=== PATIENT | male | born 1985 | race African-American/Black ===

== ENCOUNTER 2017-05-22 12:11 | Emergency (ER) | payer MEDICAID, OTHER ==
[~2017-05-22] VITALS: Ht 165.1 cm; Wt 68.0 kg
[2017-05-22 12:13] VITALS: BP 161/98; PULSE 63; RESP 13; TEMP 99.4; O2SAT 97
--- NOTE | 2017-05-22 12:25 | PD ---
HPI Chief Complaint: Oral / Dental Pain or Problem Time Seen by Provider: 12:18 Travel History International Travel<30 days: No Contact w/Intl Traveler<30days: No Traveled to known affect area: No History of Present Illness HPI 31-year-old Afro-[place]i male with left lower jaw dental pain for the past week. Patient states pain is getting worse. He does have a dentist but is unable to get in until next week. Patient denies fever or difficulty swallowing. Pain is currently 9 of 10. He does have some sensitivity to hot and cold as well. He denies drainage from the area. He has no known drug allergies. [facility] Social History Alcohol Use: No Tobacco Use: Yes Substance Use: No Allergies-Medications (Allergen,Severity, Reaction): Coded Allergies: No Known Allergies (Unverified , 06/01/15) Reported Meds & Prescriptions Reported Meds & Active Scripts Active No Active Prescriptions or Reported Medications Review of Systems Except as stated in HPI: all other systems reviewed are Neg General / Constitutional: No: Fever Eyes: No: Visual changes HENT: Positive: Dental Difficulties, No: Headaches, Vertigo, Lightheadedness, Sore Throat, Rhinitis, Rhinorrhea, Congestion, Nosebleed, Neck Stiffness, Neck Pain, Gingival Bleeding, Ear Discharge, Earache Cardiovascular: No: Chest Pain or Discomfort Respiratory: No: Shortness of Breath Gastrointestinal: No: Abdominal Pain Genitourinary: No: Dysuria Musculoskeletal: No: Pain Skin: No Rash Neurologic: No: Weakness Psychiatric: No: Depression Endocrine: No: Polydipsia Hematologic/Lymphatic: No: Easy Bruising Physical Exam Narrative GENERAL: Patient appears in mild to moderate distress. SKIN: Warm and dry. Normal color. Normal turgor. No erythema. HEAD: Atraumatic. Normocephalic. Mild swelling of the left lower jaw. EYES: Pupils equal and round. No scleral icterus. No injection or drainage. ENT: No nasal bleeding or discharge. Mucous membranes pink and moist. Patient has obvious caries to the left lower first molar with localized swelling of the gingiva, without drainable abscesses appreciated. Pharynx is clear. Airway is patent. TMs are clear bilaterally. NECK: Trachea midline. Supple and nontender without lymphadenopathy. CARDIOVASCULAR: Regular rate and rhythm. RESPIRATORY: No accessory muscle use. Clear to auscultation. Breath sounds equal bilaterally. MUSCULOSKELETAL: Extremities without clubbing, cyanosis, or edema. No obvious deformities. NEUROLOGICAL: Awake and alert. No obvious cranial nerve deficits. Motor grossly within normal limits. Five out of 5 muscle strength in the arms and legs. Normal speech. PSYCHIATRIC: Appropriate mood and affect; insight and judgment normal. Data Data Last Documented VS Vital Signs Date Time Temp Pulse Resp B/P (MAP) Pulse Ox O2 Delivery O2 Flow Rate FiO2 05/22/17 12:13 99.4 63 13 161/98 (119) 97 MDM Medical Decision Making Medical Screen Exam Complete: Yes Emergency Medical Condition: Yes Differential Diagnosis Dental caries. Dental pain. Dental abscess. Narrative Course Patient is given a first dose of Pen-Vee K 1000 mg by mouth now. Patient is given first dose of ibuprofen 800 mg by mouth now. Patient is continued on Pen-Vee K 500 mg 4 times a day 7 days. Patient is given ibuprofen 800 mg 3 times daily with food #30. Patient is given Magic mouthwash as directed every 2 hours when necessary for pain, 120 mL's with 1 refill. Patient is to follow with a dentist as soon as possible. Diagnosis Primary Impression: Dental abscess Referrals: Dentist Patient Instructions: Dental Abscess (ED), General Instructions Departure Forms: Work Release Enter return to work date: May 23, 2017 Additional Instructions: Patient is given a first dose of Pen-Vee K 1000 mg by mouth now. Patient is given first dose of ibuprofen 800 mg by mouth now. Patient is continued on Pen-Vee K 500 mg 4 times a day 7 days. Patient is given ibuprofen 800 mg 3 times daily with food #30. Patient is given Magic mouthwash as directed every 2 hours when necessary for pain, 120 mL's with 1 refill. Patient is to follow with a dentist as soon as possible. Med/Other Pt SpecificInfo: Prescription(s) given Scripts No Active Prescriptions or Reported Meds Disposition: 01 DISCHARGE HOME Condition: Stable Jordon Blackwell May 22, 2017 12:25
[2017-05-22] MEDS ORDERED: IBUP1TAB7 PO (12:28)
[2017-05-22] MEDS ORDERED: MAGICADU2 SWISH-SPIT (12:28)
[2017-05-22] MEDS ORDERED: PENI500T PO (12:28)
[2017-05-22] MEDS ORDERED: PENICILLIN V POTASSIUM 500 MG TAB PO ONE (12:30)
[2017-05-22] MEDS ORDERED: IBUPROFEN 800 MG TAB PO ONE (12:30)
== END 2017-05-22 12:54 | disposition home or self-care (01) ==
LOC: NEPK 12:11
DX: K04.7 Periapical abscess without sinus (principal)
CPT/HCPCS: 99284

== ENCOUNTER 2017-06-11 20:24 | Emergency (ER) | payer OTHER ==
[~2017-06-11] VITALS: Ht 165.1 cm; Wt 70.0 kg
[~2017-06-11 20:24] MED LIST: IBUP1TAB7 PO; MAGICADU2 SWISH-SPIT; PENI500T PO
[2017-06-11 20:39] VITALS: BP 139/87; PULSE 80; RESP 16; TEMP 98.2; O2SAT 98
[2017-06-11] MEDS ORDERED: ONDANSETRON HCL 4 MG/2 ML VIAL IV PUSH ONE (20:45)
[2017-06-11] MEDS ORDERED: MORPHINE SULFATE 4 MG/ML INJ IV PUSH ONE (20:45)
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
--- NOTE | 2017-06-11 22:04 | RADRPT ---
EXAM DATE/TIME: 06/11/2017 20:49 [facility] COMPARISON: TIBIA/FIBULA LEFT (AP/LAT), June 01, 2015, 16:48. INDICATIONS : Pain post fall. MEDICAL HISTORY : None. SURGICAL HISTORY : None. ENCOUNTER: Initial ACUITY: 1 day PAIN SCORE: 7/10 LOCATION: Left Lower leg. FINDINGS: Two view examination of the left tibia demonstrates no evidence of fracture or dislocation. Bony min eralization is normal. The soft tissue structures are intact. CONCLUSION: Unremarkable examination of the left tibia. Rudolph Gomez MD on June 11, 2017 at 22:02 Board Certified Radiologist. This report was verified electronically.
--- NOTE | 2017-06-11 22:04 | RADRPT ---
EXAM DATE/TIME: 06/11/2017 20:47 [facility] COMPARISON: No previous studies available for comparison. INDICATIONS : Pain post fall. MEDICAL HISTORY : None. SURGICAL HISTORY : None. ENCOUNTER: Initial ACUITY: 1 week PAIN SCORE: 10/10 LOCATION: Left Knee. FINDINGS: Four view examination of the left knee demonstrates no evidence of fracture or dislocation. Bony min eralization is normal. The articular surfaces are intact. The suprapatellar soft tissues have a nor mal configuration. CONCLUSION: Unremarkable examination of the left knee. Rudolph Gomez MD on June 11, 2017 at 22:02 Board Certified Radiologist. This report was verified electronically.
--- NOTE | 2017-06-11 22:05 | RADRPT ---
EXAM DATE/TIME: 06/11/2017 20:52 [facility] COMPARISON: No previous studies available for comparison. INDICATIONS : Pain post fall. MEDICAL HISTORY : None. SURGICAL HISTORY : None. ENCOUNTER: Initial ACUITY: 1 day PAIN SCORE: 5/10 LOCATION: Pelvis. FINDINGS: A single frontal view of the pelvis demonstrates no evidence of fracture. The bony pelvic ring is in tact. Bony mineralization is normal. The soft tissues are intact. CONCLUSION: No acute disease. Rudolph Gomez MD on June 11, 2017 at 22:03 Board Certified Radiologist. This report was verified electronically.
--- NOTE | 2017-06-11 22:05 | RADRPT ---
EXAM DATE/TIME: 06/11/2017 20:52 [facility] COMPARISON: No previous studies available for comparison. INDICATIONS : Pain post fall. MEDICAL HISTORY : None. SURGICAL HISTORY : None. ENCOUNTER: Initial ACUITY: 1 day PAIN SCORE: 10/10 LOCATION: Left Foot. FINDINGS: Three view examination of the left foot demonstrates no soft tissue swelling, dislocation, or fractur e. The tarsal bones appear intact. The interphalangeal and metatarsophalangeal joints are intact. The calcaneus is intact. Bony mineralization is normal. CONCLUSION: Unremarkable examination of the left foot. Rudolph Gomez MD on June 11, 2017 at 22:02 Board Certified Radiologist. This report was verified electronically.
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
[2017-06-11] MEDS ORDERED: IBUP1TAB7 PO (22:30)
[2017-06-11 23:00] VITALS: BP 136/70; PULSE 70; RESP 16; O2SAT 98
== END 2017-06-12 | disposition home or self-care (01) ==
LOC: NEPC 20:24
DX: S86.912A Strain of unspecified muscle(s) and tendon(s) at lower leg level, left leg, initial encounter (principal); S93.402A Sprain of unspecified ligament of left ankle, initial encounter; M54.2 Cervicalgia; R51 Headache; F17.200 Nicotine dependence, unspecified, uncomplicated; V09.9XXA Pedestrian injured in unspecified transport accident, initial encounter
CPT/HCPCS: 70450; 72125; 72170; 73564; 73590; 73630; 96374; 96375; 99285; E0113; J2270; J2405; L1830